=== PATIENT | male | born 1970 | race Caucasian/White ===

== ENCOUNTER 2017-11-06 21:02 | Emergency (ER) | payer OTHER ==
[~2017-11-06] VITALS: Ht 188 cm; Wt 91.0 kg
[2017-11-06 21:26] VITALS: BP 126/78; PULSE 79; RESP 14; TEMP 97.9; O2SAT 99
[2017-11-06] MEDS ORDERED: SODIUM CHLORIDE 0.9% FLUSH 10 ML FLUSH IVF PRN (22:00)
[2017-11-06] MEDS ORDERED: GABA300C5 PO (22:03)
[2017-11-06] MEDS ORDERED: CYCL10TA PO (22:03)
[2017-11-06] MEDS ORDERED: XANA2TAB2 PO (22:03)
[2017-11-06] MEDS ORDERED: CLON0.2T PO (22:03)
[2017-11-06] MEDS ORDERED: OXYC-395 PO (22:03)
--- NOTE | 2017-11-06 22:15 | PD ---
HPI Chief Complaint: Psychiatric Symptoms Time Seen by Provider: 21:52 Travel History International Travel<30 days: No Contact w/Intl Traveler<30days: No Traveled to known affect area: No History of Present Illness HPI Patient comes to the emergency department under a [place] act by police for reportedly self ingesting bleach around 1:00 this afternoon. Patient states he did not do this intentionally and thought it was water. Patient states that he drank less than half a cup and immediately tried to spit out and rinse his mouth out. Patient does believe he swallowed a small amount. Patient complaining of burning sensation in his throat. Patient states that he went to a different hospital reports that they did not do anything for him. Denies abdominal pain, chest pain, shortness of breath, suicidal ideations, homicidal ideations, difficulty swallowing, or radiation of the pain. Denies anything making symptoms better or worse. PFSH Past Medical History Anxiety: Yes Depression: Yes Hypertension: Yes Musculoskeletal: Yes (BULDGING DISC LOWER BACK) Tetanus Vaccination: < 5 Years Influenza Vaccination: No Past Surgical History Other Surgery: Yes (BILATERAL INGUINAL HERNIA) Social History Alcohol Use: Yes (SOCIAL) Tobacco Use: No Substance Use: Yes Allergies-Medications (Allergen,Severity, Reaction): Coded Allergies: No Known Allergies (Unverified , 11/06/17) Reported Meds & Prescriptions Reported Meds & Active Scripts Active Reported Xanax (Alprazolam) 2 Mg Tab 2 Mg PO BID Flexeril (Cyclobenzaprine HCl) 10 Mg Tab 10 Mg PO TID Gabapentin 300 Mg Cap 300 Mg PO TID Oxycodone (Oxycodone HCl) 10 Mg Tab 10 Mg PO Q6H PRN Clonidine (Clonidine HCl) 0.2 Mg Tab 0.2 Mg PO BID Review of Systems Except as stated in HPI: all other systems reviewed are Neg Physical Exam Narrative GENERAL: Well-developed, well nourished, in no acute distress, and non-ill appearing. SKIN: Focused skin assessment warm and dry. HEAD: Atraumatic. Normocephalic. EYES: Pupils equal and round. EOMI. No scleral icterus. No injection or drainage. ENT: No nasal bleeding or discharge. Mucous membranes pink and moist. Posterior pharynx erythematous without exudate. NECK: Trachea midline. No cervical lymphadenopathy or crepitus. Supple. No nuclear rigidity. CARDIOVASCULAR: Regular rate and rhythm. No murmur appreciated. RESPIRATORY: No accessory muscle use. No respiratory distress. Clear to auscultation. Breath sounds equal bilaterally. MUSCULOSKELETAL: No obvious deformities. No clubbing. No cyanosis. No edema. Full range of motion. NEUROLOGICAL: Awake and alert. No obvious cranial nerve deficits. Motor grossly within normal limits. Normal speech. PSYCHIATRIC: Appropriate mood and affect. Data Data Last Documented VS Vital Signs Date Time Temp Pulse Resp B/P (MAP) Pulse Ox O2 Delivery O2 Flow Rate FiO2 11/06/17 21:26 97.9 79 14 126/78 (94) 99 Orders Orders Electrocardiogram (11/06/17 21:58) Complete Blood Count With Diff (11/06/17 21:58) Comprehensive Metabolic Panel (11/06/17 21:58) Prothrombin Time / Inr (Pt) (11/06/17 21:58) Act Partial Throm Time (Ptt) (11/06/17 21:58) Urinalysis - C+S If Indicated (11/06/17 21:58) Iv Access Insert/Monitor (11/06/17 21:58) Ecg Monitoring (11/06/17 21:58) Oximetry (11/06/17 21:58) Psych Screen (11/06/17 21:58) Sodium Chloride 0.9% Flush (Ns Flush) (11/06/17 22:00) Call Poison Control (11/06/17 21:58) Drug Screen, Random Urine (11/06/17 21:58) Alcohol (Ethanol) (11/06/17 21:58) Salicylates (Aspirin) (11/06/17 21:58) Tylenol (Acetaminophen) (11/06/17 21:58) Soft Tissue Neck (11/06/17 ) MDM Medical Decision Making Medical Screen Exam Complete: Yes Emergency Medical Condition: Yes Interpretation(s) EKG reviewed by Dr. Quick showed sinus rhythm with ventricular rate 72. No STEMI. Differential Diagnosis Accidental ingestion, intentional ingestion, suicidal, homicidal, metabolic disturbance, depression Narrative Course Patient was seen and examined. Initial laboratory and radiological studies were ordered. Poison control was contacted by nurse, who reportedly received a call from [facility] earlier on same patient was reported at that time that he had ingested gasoline but it was noted there was no gasoline noted on the breath at that time. Patient reportedly left the hospital AMA per poison control. Reports of patient ingested bleach there is no need for concern at this time just to treat symptomatically. Will await lab work. Patient was signed out to Dr. Quick at the end of my shift pending lab and radiology testing. Please see his documentation for final diagnosis and disposition. Robson Coombs Nov 06, 2017 22:15
[2017-11-06 22:36] LABS: AUTOMATED NEUTROPHIL # 5.4 TH/MM3 (1.8-7.7); BASOPHIL # 0.1 TH/MM3 (0-0.2); BASOPHIL % 0.8 % (0.0-2.0); EOSINOPHIL # 0.3 TH/MM3 (0-0.4); EOSINOPHIL % 3.6 % (0.0-4.0); HEMATOCRIT 34.5 % (39.0-51.0); HEMOGLOBIN 11.8 GM/DL (13.0-17.0); LYMPH % 16.8 % (9.0-44.0); LYMPHOCYTE # 1.3 TH/MM3 (1.0-4.8); MEAN CELL VOLUME 83.4 FL (80.0-100.0); MEAN CORPUSCULAR HEMOGLOBIN 28.5 PG (27.0-34.0); MEAN CORPUSCULAR HGB CONC 34.1 % (32.0-36.0); MONO % 8.1 % (0.0-8.0); MONOCYTE # 0.6 TH/MM3 (0-0.9); NEUT % 70.7 % (16.0-70.0); PLATELET COUNT 341 TH/MM3 (150-450); RED BLOOD COUNT 4.13 MIL/MM3 (4.50-5.90); RED CELL DISTRIBUTION WIDTH 14.2 % (11.6-17.2); WHITE BLOOD COUNT 7.6 TH/MM3 (4.0-11.0)
--- NOTE | 2017-11-06 22:41 | RADRPT ---
EXAM DATE/TIME: 11/06/2017 22:30 [facility] COMPARISON: No previous studies available for comparison. INDICATIONS : Throat pain; drank bleach tonight. MEDICAL HISTORY : None. SURGICAL HISTORY : None. ENCOUNTER: Initial ACUITY: 1 day PAIN SCORE: 10/10 LOCATION: Bilateral anterior neck. FINDINGS: Two view examination of the soft tissues of the neck demonstrates the hypopharyngeal airway to have a grossly normal configuration. The trachea is midline. No radiopaque foreign bodies are seen. CONCLUSION: Normal radiographic appearance of the neck soft tissues. Arthur Snyder MD on November 06, 2017 at 22:38 Board Certified Radiologist. This report was verified electronically.
--- NOTE | 2017-11-06 22:43 | RADRPT ---
EXAM DATE/TIME: 11/06/2017 22:35 [facility] COMPARISON: No previous studies available for comparison. INDICATIONS : Cough; patients states he accidently ingested bleach today. MEDICAL HISTORY : None. SURGICAL HISTORY : None. ENCOUNTER: Initial ACUITY: 1 day PAIN SCORE: 10/10 LOCATION: Bilateral chest FINDINGS: There is infiltrate in the right middle lobe. Left lung is clear. No effusion demonstrated. No pneumo thorax. CONCLUSION: Right middle lobe pneumonia. Arthur Snyder MD on November 06, 2017 at 22:40 Board Certified Radiologist. This report was verified electronically.
[2017-11-06 23:07] LABS: ALBUMIN 3.3 GM/DL (3.4-5.0); ALKALINE PHOSPHATASE 108 U/L (45-117); ALT (GPT) 33 U/L (12-78); AST (GOT) 20 U/L (15-37); BICARBONATE 26.9 MEQ/L (21.0-32.0); BLOOD UREA NITROGEN 15 MG/DL (7-18); CALCIUM 8.8 MG/DL (8.5-10.1); CHLORIDE 103 MEQ/L (98-107); CREATININE 0.88 MG/DL (0.60-1.30); GLOMERULAR FILTRATION RATE 94 ML/MIN (>89); GLUCOSE,RANDOM 86 MG/DL (74-106); SODIUM (NA) 137 MEQ/L (136-145); TOTAL BILIRUBIN ADULT 0.8 MG/DL (0.2-1.0); TOTAL PROTEIN 7.9 GM/DL (6.4-8.2)
[2017-11-06 23:09] LABS: ACETAMINOPHEN LESS THAN 2.0 MCG/ML (10.0-30.0)
[2017-11-06 23:12] LABS: INTERNATIONAL NORMALIZED RATIO 1.1 RATIO; PROTHROMBIN TIME - PATIENT 10.7 SEC (9.8-11.6)
[2017-11-06 23:36] VITALS: BP 124/76; PULSE 80; RESP 16; O2SAT 99
[2017-11-07 01:27] VITALS: BP 121/73; PULSE 72; RESP 16; O2SAT 99
[2017-11-07] MEDS ORDERED: CLINDAMYCIN 150 MG CAP PO ONE (02:15)
--- NOTE | 2017-11-07 04:32 | RADRPT ---
EXAM DATE/TIME: 11/07/2017 04:02 [facility] COMPARISON: No previous studies available for comparison. INDICATIONS : Short of breath. Follow up right middle lobe pneumonia. MEDICAL HISTORY : None. SURGICAL HISTORY : None. ENCOUNTER: Initial ACUITY: 1 day PAIN SCORE: 0/10 LOCATION: Bilateral chest FINDINGS: PA and lateral views of the chest demonstrate airspace consolidation in right middle lobe characteris tic of bronchopneumonia. Left lung clear. No effusion. CONCLUSION: 1. Right middle lobe consolidation most characteristic of pneumonia, similar to November 06. Aric Castillo MD on November 07, 2017 at 4:28 Board Certified Radiologist. This report was verified electronically.
[2017-11-07] MEDS ORDERED: CLIN300C5 PO (04:57)
[2017-11-07] MEDS ORDERED: CIPR-9 PO (04:57)
--- NOTE | 2017-11-07 04:57 | PD ---
Physical Exam Date Seen by Provider: Nov 06, 2017 Time Seen by Provider: 23:00 Narrative Patient's x-ray shows a possible infiltrate in the right middle lobe however aspiration of gasoline would be possible cause of slight increased density in RML will repeat on xray in 6 hrs to assure no severe increase,, he is no signs or symptoms of having this be an aspiration of gasoline I am covering with clindamycin and cipro by mouth for possible aspiration pneumonia but his sat is been 100% the entire time he has been monitored for 12 hours in the ER his labs are reviewed Data Data Last Documented VS Vital Signs Date Time Temp Pulse Resp B/P (MAP) Pulse Ox O2 Delivery O2 Flow Rate FiO2 11/07/17 13:20 Orders Orders Electrocardiogram (11/06/17 21:58) Complete Blood Count With Diff (11/06/17 21:58) Comprehensive Metabolic Panel (11/06/17 21:58) Prothrombin Time / Inr (Pt) (11/06/17 21:58) Act Partial Throm Time (Ptt) (11/06/17 21:58) Urinalysis - C+S If Indicated (11/06/17 21:58) Iv Access Insert/Monitor (11/06/17 21:58) Ecg Monitoring (11/06/17 21:58) Oximetry (11/06/17 21:58) Psych Screen (11/06/17 21:58) Sodium Chloride 0.9% Flush (Ns Flush) (11/06/17 22:00) Call Poison Control (11/06/17 21:58) Drug Screen, Random Urine (11/06/17 21:58) Alcohol (Ethanol) (11/06/17 21:58) Salicylates (Aspirin) (11/06/17 21:58) Tylenol (Acetaminophen) (11/06/17 21:58) Soft Tissue Neck (11/06/17 ) Chest, Pa & Lat (11/06/17 ) Clindamycin (Cleocin) (11/07/17 02:15) Chest, Pa & Lat (11/07/17 ) Ciprofloxacin (Cipro) (11/07/17 05:00) Ed Discharge Order (11/07/17 12:06) Labs Laboratory Tests Test 11/06/17 22:15 11/07/17 06:00 White Blood Count 7.6 TH/MM3 Red Blood Count 4.13 MIL/MM3 Hemoglobin 11.8 GM/DL Hematocrit 34.5 % Mean Corpuscular Volume 83.4 FL Mean Corpuscular Hemoglobin 28.5 PG Mean Corpuscular Hemoglobin Concent 34.1 % Red Cell Distribution Width 14.2 % Platelet Count 341 TH/MM3 Mean Platelet Volume 7.0 FL Neutrophils (%) (Auto) 70.7 % Lymphocytes (%) (Auto) 16.8 % Monocytes (%) (Auto) 8.1 % Eosinophils (%) (Auto) 3.6 % Basophils (%) (Auto) 0.8 % Neutrophils # (Auto) 5.4 TH/MM3 Lymphocytes # (Auto) 1.3 TH/MM3 Monocytes # (Auto) 0.6 TH/MM3 Eosinophils # (Auto) 0.3 TH/MM3 Basophils # (Auto) 0.1 TH/MM3 CBC Comment DIFF FINAL Differential Comment Prothrombin Time 10.7 SEC Prothromb Time International Ratio 1.1 RATIO Activated Partial Thromboplast Time 34.9 SEC Blood Urea Nitrogen 15 MG/DL Creatinine 0.88 MG/DL Random Glucose 86 MG/DL Total Protein 7.9 GM/DL Albumin 3.3 GM/DL Calcium Level 8.8 MG/DL Alkaline Phosphatase 108 U/L Aspartate Amino Transf (AST/SGOT) 20 U/L Alanine Aminotransferase (ALT/SGPT) 33 U/L Total Bilirubin 0.8 MG/DL Sodium Level 137 MEQ/L Potassium Level 3.7 MEQ/L Chloride Level 103 MEQ/L Carbon Dioxide Level 26.9 MEQ/L Anion Gap 7 MEQ/L Estimat Glomerular Filtration Rate 94 ML/MIN Salicylates Level LESS THAN 1.7 MG/DL Acetaminophen Level LESS THAN 2.0 MCG/ML Ethyl Alcohol Level LESS THAN 3 MG/DL Urine Color YELLOW Urine Turbidity CLEAR Urine pH 6.5 Urine Specific [place] 1.017 Urine Protein NEG mg/dL Urine Glucose (UA) NEG mg/dL Urine Ketones NEG mg/dL Urine Occult Blood NEG Urine Nitrite NEG Urine Bilirubin NEG Urine Urobilinogen LESS THAN 2.0 MG/DL Urine Leukocyte Esterase NEG Urine RBC LESS THAN 1 /hpf Urine Hyaline Casts 3 /lpf Urine Mucus FEW /lpf Microscopic Urinalysis Comment CULT NOT INDICATED Urine Opiates Screen NEG Urine Barbiturates Screen NEG Urine Amphetamines Screen POS Urine Benzodiazepines Screen POS Urine Cocaine Screen NEG Urine Cannabinoids Screen NEG [facility] Medical Record Reviewed: Yes Supervised Visit with MELL: Yes Narrative Course repeat xrays shows no increase in the size or density of RML PNA he is covered in ER and Rx to go woth him when dispo by next provider. signed out at 7am Diagnosis Primary Impression: Pneumonia Qualified Codes: J18.1 - Lobar pneumonia, unspecified organism Scripts Ciprofloxacin (Cipro) 500 Mg Tab 500 MG PO BID for Infection, #20 TAB 0 Refills Prov: Kwasi Quick MD 11/07/17 Clindamycin (Clindamycin) 300 Mg Cap 300 MG PO TID for Infection, #30 CAP 0 Refills Prov: Kwasi Quick MD 11/07/17 Disposition: 01 DISCHARGE HOME Condition: Good Kwasi Quick MD Nov 07, 2017 04:57
[2017-11-07] MEDS ORDERED: CIPROFLOXACIN 500 MG TAB PO ONE (05:00)
[2017-11-07 06:03] VITALS: BP 136/81; PULSE 97; RESP 16; O2SAT 100
[2017-11-07 06:44] LABS: BILIRUBIN, URINE NEG (NEG); BLOOD, URINE NEG (NEG); GLUCOSE,URINE NEG (NEG); HYALINE CAST, URINE 3 /lpf (RARE); KETONE, URINE NEG (NEG); MUCUS URINE FEW /lpf (OCC); NITRITE,URINE NEG (NEG); PH, URINE 6.5 (5.0-8.5); URINE COLOR YELLOW (YELLW/STRAW); URINE LEUKOCYTE ESTERASE NEG (NEG)
[2017-11-07 06:45] VITALS: BP 116/63; PULSE 85; RESP 18; O2SAT 98
--- NOTE | 2017-11-07 12:04 | PD ---
Physical Exam Time Seen by Provider: 12:03 Data Data Last Documented VS Vital Signs Date Time Temp Pulse Resp B/P (MAP) Pulse Ox O2 Delivery O2 Flow Rate FiO2 11/07/17 06:45 85 18 116/63 (80) 98 Room Air 11/06/17 21:26 97.9 Orders Orders Electrocardiogram (11/06/17 21:58) Complete Blood Count With Diff (11/06/17 21:58) Comprehensive Metabolic Panel (11/06/17 21:58) Prothrombin Time / Inr (Pt) (11/06/17 21:58) Act Partial Throm Time (Ptt) (11/06/17 21:58) Urinalysis - C+S If Indicated (11/06/17 21:58) Iv Access Insert/Monitor (11/06/17 21:58) Ecg Monitoring (11/06/17 21:58) Oximetry (11/06/17 21:58) Psych Screen (11/06/17 21:58) Sodium Chloride 0.9% Flush (Ns Flush) (11/06/17 22:00) Call Poison Control (11/06/17 21:58) Drug Screen, Random Urine (11/06/17 21:58) Alcohol (Ethanol) (11/06/17 21:58) Salicylates (Aspirin) (11/06/17 21:58) Tylenol (Acetaminophen) (11/06/17 21:58) Soft Tissue Neck (11/06/17 ) Chest, Pa & Lat (11/06/17 ) Clindamycin (Cleocin) (11/07/17 02:15) Chest, Pa & Lat (11/07/17 ) Ciprofloxacin (Cipro) (11/07/17 05:00) Diet Regular Basic (11/07/17 Lunch) Labs Laboratory Tests Test 11/06/17 22:15 11/07/17 06:00 White Blood Count 7.6 TH/MM3 Red Blood Count 4.13 MIL/MM3 Hemoglobin 11.8 GM/DL Hematocrit 34.5 % Mean Corpuscular Volume 83.4 FL Mean Corpuscular Hemoglobin 28.5 PG Mean Corpuscular Hemoglobin Concent 34.1 % Red Cell Distribution Width 14.2 % Platelet Count 341 TH/MM3 Mean Platelet Volume 7.0 FL Neutrophils (%) (Auto) 70.7 % Lymphocytes (%) (Auto) 16.8 % Monocytes (%) (Auto) 8.1 % Eosinophils (%) (Auto) 3.6 % Basophils (%) (Auto) 0.8 % Neutrophils # (Auto) 5.4 TH/MM3 Lymphocytes # (Auto) 1.3 TH/MM3 Monocytes # (Auto) 0.6 TH/MM3 Eosinophils # (Auto) 0.3 TH/MM3 Basophils # (Auto) 0.1 TH/MM3 CBC Comment DIFF FINAL Differential Comment Prothrombin Time 10.7 SEC Prothromb Time International Ratio 1.1 RATIO Activated Partial Thromboplast Time 34.9 SEC Blood Urea Nitrogen 15 MG/DL Creatinine 0.88 MG/DL Random Glucose 86 MG/DL Total Protein 7.9 GM/DL Albumin 3.3 GM/DL Calcium Level 8.8 MG/DL Alkaline Phosphatase 108 U/L Aspartate Amino Transf (AST/SGOT) 20 U/L Alanine Aminotransferase (ALT/SGPT) 33 U/L Total Bilirubin 0.8 MG/DL Sodium Level 137 MEQ/L Potassium Level 3.7 MEQ/L Chloride Level 103 MEQ/L Carbon Dioxide Level 26.9 MEQ/L Anion Gap 7 MEQ/L Estimat Glomerular Filtration Rate 94 ML/MIN Salicylates Level LESS THAN 1.7 MG/DL Acetaminophen Level LESS THAN 2.0 MCG/ML Ethyl Alcohol Level LESS THAN 3 MG/DL Urine Color YELLOW Urine Turbidity CLEAR Urine pH 6.5 Urine Specific [place] 1.017 Urine Protein NEG mg/dL Urine Glucose (UA) NEG mg/dL Urine Ketones NEG mg/dL Urine Occult Blood NEG Urine Nitrite NEG Urine Bilirubin NEG Urine Urobilinogen LESS THAN 2.0 MG/DL Urine Leukocyte Esterase NEG Urine RBC LESS THAN 1 /hpf Urine Hyaline Casts 3 /lpf Urine Mucus FEW /lpf Microscopic Urinalysis Comment CULT NOT INDICATED Urine Opiates Screen NEG Urine Barbiturates Screen NEG Urine Amphetamines Screen POS Urine Benzodiazepines Screen POS Urine Cocaine Screen NEG Urine Cannabinoids Screen NEG MDM Medical Record Reviewed: Yes Supervised Visit with MELL: No Narrative Course Before meals previous providers notes. The [place] act has been lifted and the patient denies any suicidality. He is being discharged with prescriptions for ciprofloxacin and clindamycin which were written by the physician for right middle lobe pneumonia. Diagnosis Primary Impression: Pneumonia Scripts Ciprofloxacin (Cipro) 500 Mg Tab 500 MG PO BID for Infection, #20 TAB 0 Refills Prov: Kwasi Quick MD 11/07/17 Clindamycin (Clindamycin) 300 Mg Cap 300 MG PO TID for Infection, #30 CAP 0 Refills Prov: Kwasi Quick MD 11/07/17 Disposition: 01 DISCHARGE HOME Condition: Ranjeet Lomax Nov 07, 2017 12:04
--- NOTE | 2017-11-07 12:09 | PD ---
History of Present Illness Chief Complaint: Psychiatric Symptoms Time Seen by Provider: 11:35 Travel History International Travel<30 Days: No Contact w/Intl Traveler<30days: No Known affected area: No Legal Status Legal Status: Dunlap Act Dunlap Act Signed By: NATALYA MAE MD [id number] [place], [place] History of Present Illness: Narrative 46-year-old male with self reported history of bipolar disorder who is seen in [facility] ED as a transfer from [facility] under Dunlap act. The Dunlap act states" 46-year-old with history of depression and self injury in the past. Has been using IV Dilaudid and depressed since and kids left over 1 year ago to [place]. Today he ingested chlorine. Patient states he ingested accidentally, family disagree." The patient reported to psychiatric screen her that this was an accidental ingestion and not a suicidal gesture. He goes on to state that he believes that a friend played a prank on him by placing bleach in a container that they usually drink out of. He goes on to state that after he took a drink of the bleach he spat it out. The patient was further monitored here in [facility] and he presented no behavioral concerns and no suicidality. Electronic medical record is reviewed. No previous contact with [facility] psychiatry. Toxicology is positive for methamphetamines as well as benzos. The patient is seen in [facility], [facility] tech is present during interview. The patient is alert, cooperative, calm and engaging his speech is clear although his voice is raspy. His thoughts are logical, organized with no indication of any psychosis. There is no olesya or hypomania. The patient denies any suicidal or homicidal ideation, intent or plan. He states" I have 2 boys ages 13 and 15-year-old I would not harm myself." He does admit to feeling depressed over various issues going on in his life. He admits to having been using methamphetamine 3 days prior to this hospital visit and that he has been awake for at least 2 nights. He reports that during these 2 nights he was hallucinating and his family was indeed concerned over him. He goes on to state that he does not usually use of amphetamines and that this was an isolated incident. He admits to using Dilaudid as he has been treated for pain for many years. Furthermore through patient states that his has been for over 10 years and that he sees his children 3 times per year. When asked about his leaving [facility] he tells me that he left because he felt that they were not treating him or addressing his concerns. PFSH Past Medical History Anxiety: Yes Depression: Yes Hypertension: Yes Musculoskeletal: Yes (BULDGING DISC LOWER BACK) Tetanus Vaccination: < 5 Years Influenza Vaccination: No Past Surgical History Other Surgery: Yes (BILATERAL INGUINAL HERNIA) Psychiatric History Psychiatric History Hx Psychiatric Treatment: Patient with a stated hx of bipolar disorder. He states he has been treated at [facility] many times, but has no recollection of the most recent date. Currently not on any treatment currently not on psychiatric medication. History of Inpatient Treatment: Yes Guns or firearms in home: No Social History male. Lives with his mother. Has 2 sons ages 13 and 15 years old. Unemployed. Reports has completed one year of college. Hx Alcohol Use: Yes (SOCIAL) Hx Tobacco Use: No Hx Substance Use: Yes (IV Dilaudid) Substance Use Type: Alcohol, Amphetamines-Stimulants, Synth Opiates-Pain Pills Hx of Substance Use Treatment: Yes Family Psychiatric History Negative Allergies-Medications (Allergen,Severity, Reaction): Coded Allergies: No Known Allergies (Unverified , 11/06/17) Reported Meds & Prescriptions Reported Meds & Active Scripts Active Cipro (Ciprofloxacin HCl) 500 Mg Tab 500 Mg PO BID Clindamycin (Clindamycin HCl) 300 Mg Cap 300 Mg PO TID Reported Xanax (Alprazolam) 2 Mg Tab 2 Mg PO BID Flexeril (Cyclobenzaprine HCl) 10 Mg Tab 10 Mg PO TID Gabapentin 300 Mg Cap 300 Mg PO TID Oxycodone (Oxycodone HCl) 10 Mg Tab 10 Mg PO Q6H PRN Clonidine (Clonidine HCl) 0.2 Mg Tab 0.2 Mg PO BID Review of Systems Musculoskeletal: COMPLAINS OF: Stiffness, Back pain, Neck pain Mental Status Examination Appearance: Disheveled (in [facility]. Long hair pulled back in a ponytail.) Consciousness: Alert Orientation: x4 Motor Activity: Normal gait Speech: Unremarkable Language: Adequate Fund of Knowledge: Adequate Attention and Concentration: Adequate Memory: Unremarkable Mood: Appropriate Affect: Appropriate Thought Process & Associations: Intact, Logical, Goal directed Thought Content: Appropriate Hallucination Type: None Delusion Type: None Suicidal Ideation: No Suicidal Plan: No Suicidal Intention: No Homicidal Ideation: No Homicidal Plan: No Homicidal Intention: No Insight: Poor Judgment: Adequate MDM Medical Decision Making Medical Record Reviewed: Yes Assessment/Plan 46-year-old male with her self-reported history of bipolar disorder, currently not treated, who presented to the [facility] on a voluntary basis for treatment after he accidentally ingested some bleach. The patient then left AMA and a Dunlap act was placed by ED provider. The patient has been monitored here in [facility] and he has presented no behavioral concerns and no suicidality. He denies that it was an intentional ingestion but that rather he believes his friends were playing a prank on him and this was accidental. He acknowledges recent binge of amphetamine use for the past 3 days with inability inability to sleep for at least 2 nights. He admits to hallucinations in context of the amphetamine use and lack of sleep. Presently he does not present any indication of any psychosis, no olesya, no hypomania, denies any suicidal or homicidal ideation. The patient admits to some depression related to social stressors. He has been to [facility] in the past but does not feel that medication has been helpful. At this time the patient does not present any evidence of unstable mental illness as defined under the Dunlap act. He is requesting discharge and does not meet criteria to remain under an involuntary status. He is counseled and advised to follow up with [facility]. The Dunlap act is lifted. Psychiatrically clear for discharge from ED. Orders Orders Electrocardiogram (11/06/17 21:58) Complete Blood Count With Diff (11/06/17 21:58) Comprehensive Metabolic Panel (11/06/17 21:58) Prothrombin Time / Inr (Pt) (11/06/17 21:58) Act Partial Throm Time (Ptt) (11/06/17 21:58) Urinalysis - C+S If Indicated (11/06/17 21:58) Iv Access Insert/Monitor (11/06/17 21:58) Ecg Monitoring (11/06/17 21:58) Oximetry (11/06/17 21:58) Psych Screen (11/06/17 21:58) Sodium Chloride 0.9% Flush (Ns Flush) (11/06/17 22:00) Call Poison Control (11/06/17 21:58) Drug Screen, Random Urine (11/06/17 21:58) Alcohol (Ethanol) (11/06/17 21:58) Salicylates (Aspirin) (11/06/17 21:58) Tylenol (Acetaminophen) (11/06/17 21:58) Soft Tissue Neck (11/06/17 ) Chest, Pa & Lat (11/06/17 ) Clindamycin (Cleocin) (11/07/17 02:15) Chest, Pa & Lat (11/07/17 ) Ciprofloxacin (Cipro) (11/07/17 05:00) Diet Regular Basic (11/07/17 Lunch) Results Vital Signs Date Time Temp Pulse Resp B/P (MAP) Pulse Ox O2 Delivery O2 Flow Rate FiO2 11/07/17 06:45 85 18 116/63 (80) 98 Room Air 11/07/17 06:03 97 16 136/81 (99) 100 Room Air 11/07/17 01:27 72 16 121/73 (89) 99 Room Air 11/06/17 23:36 80 16 124/76 (92) 99 Room Air 11/06/17 21:26 97.9 79 14 126/78 (94) 99 Laboratory Tests Test 11/06/17 22:15 11/07/17 06:00 White Blood Count 7.6 Red Blood Count 4.13 Hemoglobin 11.8 Hematocrit 34.5 Mean Corpuscular Volume 83.4 Mean Corpuscular Hemoglobin 28.5 Mean Corpuscular Hemoglobin Concent 34.1 Red Cell Distribution Width 14.2 Platelet Count 341 Mean Platelet Volume 7.0 Neutrophils (%) (Auto) 70.7 Lymphocytes (%) (Auto) 16.8 Monocytes (%) (Auto) 8.1 Eosinophils (%) (Auto) 3.6 Basophils (%) (Auto) 0.8 Neutrophils # (Auto) 5.4 Lymphocytes # (Auto) 1.3 Monocytes # (Auto) 0.6 Eosinophils # (Auto) 0.3 Basophils # (Auto) 0.1 CBC Comment DIFF FINAL Differential Comment Prothrombin Time 10.7 Prothromb Time International Ratio 1.1 Activated Partial Thromboplast Time 34.9 Blood Urea Nitrogen 15 Creatinine 0.88 Random Glucose 86 Total Protein 7.9 Albumin 3.3 Calcium Level 8.8 Alkaline Phosphatase 108 Aspartate Amino Transf (AST/SGOT) 20 Alanine Aminotransferase (ALT/SGPT) 33 Total Bilirubin 0.8 Sodium Level 137 Potassium Level 3.7 Chloride Level 103 Carbon Dioxide Level 26.9 Anion Gap 7 Estimat Glomerular Filtration Rate 94 Salicylates Level LESS THAN 1.7 Acetaminophen Level LESS THAN 2.0 Ethyl Alcohol Level LESS THAN 3 Urine Color YELLOW Urine Turbidity CLEAR Urine pH 6.5 Urine Specific [place] 1.017 Urine Protein NEG Urine Glucose (UA) NEG Urine Ketones NEG Urine Occult Blood NEG Urine Nitrite NEG Urine Bilirubin NEG Urine Urobilinogen LESS THAN 2.0 Urine Leukocyte Esterase NEG Urine RBC LESS THAN 1 Urine Hyaline Casts 3 Urine Mucus FEW Microscopic Urinalysis Comment CULT NOT INDICATED Urine Opiates Screen NEG Urine Barbiturates Screen NEG Urine Amphetamines Screen POS Urine Benzodiazepines Screen POS Urine Cocaine Screen NEG Urine Cannabinoids Screen NEG Diagnosis Primary Impression: Amphetamine abuse Additional Impressions: Pneumonia Substance induced mood disorder Psychiatrically Cleared: Yes Med/ Other Pt Specific Info: No Meds Exist/No RX given Prescriptions Ciprofloxacin (Cipro) 500 Mg Tab 500 MG PO BID for Infection, #20 TAB 0 Refills Prov: Kwasi Quick MD 11/07/17 Clindamycin (Clindamycin) 300 Mg Cap 300 MG PO TID for Infection, #30 CAP 0 Refills Prov: Kwasi Quick MD 11/07/17 Disposition: 01 DISCHARGE HOME Condition: Stable Problem Qualifiers Kaela Galarza Nov 07, 2017 12:09
--- NOTE | 2017-11-07 14:29 | EKG ---
Date Performed: 11/06/2017 Time Performed: 22:08:01 PTAGE: 46 years EKG: Sinus rhythm NORMAL ECG NO PREVIOUS TRACING DOCTOR: Blanca Pop Interpretating Date/Time 11/07/2017 14:26:42
== END 2017-11-07 13:32 | disposition home or self-care (01) ==
LOC: NEPJ 21:02
DX: F15.14 Other stimulant abuse with stimulant-induced mood disorder (principal); J18.1 Lobar pneumonia, unspecified organism; I10 Essential (primary) hypertension; F31.9 Bipolar disorder, unspecified; Z79.899 Other long term (current) drug therapy
CPT/HCPCS: 70360; 71046; 80053; 80307; 81001; 85025; 85610; 85730; 93005; 99285